=== PATIENT | female | born 1955 | race Caucasian/White ===

== ENCOUNTER 2017-01-25 14:13 | Emergency (ER) | payer OTHER ==
[2017-01-25 14:28] VITALS: TEMP 98.2; O2SAT 96
--- NOTE | 2017-01-25 14:46 | ED.PDOC ---
History of Present Illness - General Chief Complaint: Problem Stated Complaint: urinary urgency Time Seen by Provider: 01/25/17 14:34 Source: patient Exam Limitations: no limitations - History of Present Illness Initial Comments: Patient presents with three days of frequency, urgency, and incomplete voiding. No dysuria. Says she has had "kidney infections" before. Denies fever. Says she has right lower back pain that is of recent onset but also states that she has chronic back pain. Stopped smoking tobacco 9 years ago. Drinks 1-2 beers per day. Smokes marijuana recreationally. No other complaints. Timing/Duration: other - 3 days Severity: moderate Improving Factors: nothing Worsening Factors: nothing Associated Symptoms: denies symptoms Allergies/Adverse Reactions: Allergies NO KNOWN ALLERGY Allergy (Verified 09/27/16 15:31) Home Medications: Ambulatory Orders HYDROcodone 10MG/APAP 325MG [[place] 10/325] 1 tab PO QID 07/18/15 Atorvastatin Calcium [Lipitor] 40 mg PO BEDTIME 09/27/16 Lisinopril 20 mg PO DAILY 09/27/16 Review of Systems - Review of Systems Constitutional: States: no symptoms reported EENTM: States: no symptoms reported Respiratory: States: no symptoms reported Cardiology: States: no symptoms reported Gastrointestinal/Abdominal: States: no symptoms reported Genitourinary: States: no symptoms reported Musculoskeletal: States: no symptoms reported Skin: States: no symptoms reported Neurological: States: no symptoms reported Endocrine: States: no symptoms reported Hematologic/Lymphatic: States: no symptoms reported Past Medical History (General) - Patient Medical History Hx Seizures: No Hx Stroke: No Hx Dementia: No Hx Asthma: No Hx of COPD: No Hx Cardiac Disorders: No Hx Congestive Heart Failure: No Hx Pacemaker: No Hx Hypertension: Yes Hx Thyroid Disease: No Hx Diabetes: No Hx Gastroesophageal Reflux: No Hx Renal Disease: No Hx Cancer: No Hx of HIV: No Hx MRSA: No - Vaccination History Hx Tetanus, Diphtheria Vaccination: No Hx Influenza Vaccination: No Hx Pneumococcal Vaccination: No - Social History Hx Tobacco Use: No Hx Alcohol Use: No Hx Substance Use: No Hx Substance Use Treatment: No Hx Depression: No - Female History Patient is a Female of Child Bearing Age (10 -59 yrs old): No Family Medical History - Family History Mother Family History: No Known Living Status: Still Living Hx Family;Other: FAHTER OF [place]. BROTHER OF [place]. Physical Exam - Physical Exam General Appearance: Alert Ears, Nose, Throat: normal ENT inspection Neck: non-tender, full range of motion, supple Respiratory: lungs clear Cardiovascular/Chest: normal peripheral pulses, regular rate, rhythm, no edema Gastrointestinal/Abdominal: normal bowel sounds, non tender, soft Back Exam: normal inspection Extremity: normal inspection, no pedal edema Neurologic: no motor/sensory deficits Skin Exam: normal color Lymphatic: no adenopathy Progress - Progress Progress: 01/25/17 15:47 UA x two negative. 01/25/17 15:47 Laboratory Tests 01/25/17 14:27 Urine Color Yellow Urine Appearance Clear Urine pH 5.5 Ur Specific [place] 1.010 Urine Protein Negative Urine Glucose (UA) Negative Urine Ketones Negative Urine Blood Trace-intact H Urine Nitrite Negative Urine Bilirubin Negative Urine Urobilinogen 0.2 Ur Leukocyte Esterase Negative Urine RBC 0-1 Urine WBC 0 Ur Epithelial Cells 0-1 Urine Bacteria 0 Departure - Departure Clinical Impression: Dysuria Disposition: Discharge to Home or Self Care Condition: Good Departure Forms: ED Discharge - Pt. Copy, Patient Portal Self Enrollment Diet: resume usual diet Activity: increase activity as tolerated Home Medications: Ambulatory Orders HYDROcodone 10MG/APAP 325MG [[place] 10/325] 1 tab PO QID 07/18/15 Atorvastatin Calcium [Lipitor] 40 mg PO BEDTIME 09/27/16 Lisinopril 20 mg PO DAILY 09/27/16 Additional Instructions: Increase oral fluids. Follow up with your primary care doctor next week if pain does not resolve.
[2017-01-25 16:06] VITALS: BP 131/74
== END 2017-01-25 16:06 | disposition home or self-care (01) ==
LOC: ER 14:13
DX: R30.0 Dysuria (principal); I10 Essential (primary) hypertension; Z87.891 Personal history of nicotine dependence; Z79.899 Other long term (current) drug therapy; Z82.49 Family history of ischemic heart disease and other diseases of the circulatory system

== ENCOUNTER 2017-05-11 10:58 | Emergency (ER) | payer OTHER ==
--- NOTE | 2017-05-11 11:15 | ED.PDOC ---
History of Present Illness - General Chief Complaint: General Stated Complaint: blood in urine,back pain Time Seen by Provider: 05/11/17 11:09 Source: patient Exam Limitations: no limitations - History of Present Illness Initial Comments: Racheal Callahan 61 y/o female stated that she had hysterectomy last month and had also been treated fo acute cystitis with blood in urine but today with backache and stiil need to go to bathroom frequently.No hematuria,no constipation. Timing/Duration: intermittent, other - 5 days Improving Factors: nothing Worsening Factors: nothing Associated Symptoms: other - backache Allergies/Adverse Reactions: Allergies NO KNOWN ALLERGY Allergy (Verified 09/27/16 15:31) Home Medications: Ambulatory Orders HYDROcodone 10MG/APAP 325MG [[place] 10/325] 1 tab PO QID 07/18/15 Atorvastatin Calcium [Lipitor] 40 mg PO BEDTIME 09/27/16 Lisinopril 20 mg PO DAILY 09/27/16 Phenazopyridine HCl [Pyridium] 100 mg PO BID #7 tab 05/11/17 flavoxATE HYDROCHLORIDE [Urispas] 100 mg PO BID #7 tab 05/11/17 Review of Systems - Review of Systems Constitutional: States: no symptoms reported EENTM: States: no symptoms reported Respiratory: States: no symptoms reported Cardiology: States: no symptoms reported Gastrointestinal/Abdominal: States: no symptoms reported Genitourinary: States: see HPI Musculoskeletal: States: back pain - chronic goes to pain management Past Medical History (General) - Patient Medical History Hx Seizures: No Hx Stroke: No Hx Dementia: No Hx Asthma: No Hx of COPD: No Hx Cardiac Disorders: No Hx Congestive Heart Failure: No Hx Pacemaker: No Hx Hypertension: Yes Hx Thyroid Disease: No Hx Diabetes: No Hx Gastroesophageal Reflux: No Hx Renal Disease: No Hx Cancer: No Hx of HIV: No Hx MRSA: No Surgical History: other - hysterectomy - Vaccination History Hx Tetanus, Diphtheria Vaccination: No Hx Influenza Vaccination: No Hx Pneumococcal Vaccination: No - Social History Hx Tobacco Use: No Hx Alcohol Use: No Hx Substance Use: No Hx Substance Use Treatment: No Hx Depression: No - Activities of Daily Living Patient Lives Alone: No - family Grooming Ability: Independent Eating (Feeding) Ability: Independent Toileting Ability: Independent Family Medical History - Family History Mother Family History: No Known Living Status: Still Living Hx Cardiac Disease: Yes - cad/mi-dad Hx Family Cancer: Yes - uterus-mom Hx Family;Other: FAHTER OF [place]. BROTHER OF [place]. Physical Exam - Physical Exam General Appearance: Alert, Anxious, No apparent distress Eye Exam: bilateral normal Ears, Nose, Throat: hearing grossly normal, normal ENT inspection Neck: non-tender, full range of motion, supple, normal inspection Respiratory: chest non-tender, lungs clear, normal breath sounds Cardiovascular/Chest: normal peripheral pulses, regular rate, rhythm, no murmur Peripheral Pulses: radial,right: 1+, radial,left: 1+ Gastrointestinal/Abdominal: normal bowel sounds, non tender, soft, no organomegaly Back Exam: normal inspection, no CVA tenderness, no vertebral tenderness Extremity: normal range of motion, non-tender, normal inspection, no pedal edema , no calf tenderness Neurologic: no motor/sensory deficits, alert, normal mood/affect, oriented x 3 Skin Exam: normal color, warm/dry Lymphatic: no adenopathy Departure - Departure Clinical Impression: Pelvic relaxation disorder Time of Disposition: 12:56 Disposition: Discharge to Home or Self Care Condition: Good Referrals: Mary Narayanan [Primary Care Provider] - 1-2 Weeks Prescriptions: flavoxATE HYDROCHLORIDE [Urispas] 100 mg PO BID #7 tab Phenazopyridine HCl [Pyridium] 100 mg PO BID #7 tab Home Medications: Ambulatory Orders HYDROcodone 10MG/APAP 325MG [[place] 10/325] 1 tab PO QID 07/18/15 Atorvastatin Calcium [Lipitor] 40 mg PO BEDTIME 09/27/16 Lisinopril 20 mg PO DAILY 09/27/16 Phenazopyridine HCl [Pyridium] 100 mg PO BID #7 tab 05/11/17 flavoxATE HYDROCHLORIDE [Urispas] 100 mg PO BID #7 tab 05/11/17 Additional Instructions: FOLLOW UP WITH CAREER REPRESENTATIVE 05/12/2017 call for APPOINTMENT
[2017-05-11 12:07] VITALS: TEMP 98.5
[2017-05-11 13:30] VITALS: BP 125/82; O2SAT 97
== END 2017-05-11 13:10 | disposition home or self-care (01) ==
LOC: ER 10:58
DX: N81.89 Other female genital prolapse (principal); Z79.899 Other long term (current) drug therapy; I10 Essential (primary) hypertension; Z82.49 Family history of ischemic heart disease and other diseases of the circulatory system

== ENCOUNTER 2019-01-15 18:30 | Emergency (ER) | payer OTHER ==
[2019-01-15 18:53] VITALS: TEMP 97.6
--- NOTE | 2019-01-15 19:31 | ED.PDOC ---
History of Present Illness - General Chief Complaint: Abdominal Pain Stated Complaint: Bilat flank discomfort Time Seen by Provider: 01/15/19 18:35 Source: patient Exam Limitations: no limitations - History of Present Illness Initial Comments: the patient is a 63-year-old female presenting to the emergency room secondary to symptoms of a urinary tract infection and been progressive over the last week. She is having frequency along with dysuria as well as bilateral flank pain. No fever at this point. No nausea or vomiting. She has had several urinary tract infections in the past. No significant vaginal discharge. Timing/Duration: 1 week Severity: moderate Improving Factors: nothing Worsening Factors: nothing Associated Symptoms: malaise Allergies/Adverse Reactions: Allergies NO KNOWN ALLERGY Allergy (Verified 01/15/19 18:53) Home Medications: Ambulatory Orders HYDROcodone 10MG/APAP 325MG [[place] 10/325] 1 tab PO QID 07/18/15 Atorvastatin Calcium [Lipitor] 40 mg PO BEDTIME 09/27/16 Lisinopril 20 mg PO DAILY 09/27/16 Ciprofloxacin [Cipro] 500 mg PO BID #20 tab 01/15/19 Nitrofurantoin Monohydrate Mac [Macrobid] 100 mg PO DAILY #7 capsule 01/15/19 tiZANidine [Zanaflex] 4 mg PO TID PRN 01/15/19 Review of Systems - Review of Systems Constitutional: States: malaise EENTM: States: no symptoms reported Respiratory: States: no symptoms reported Cardiology: States: no symptoms reported Gastrointestinal/Abdominal: States: abdominal pain - suprapubic Genitourinary: States: see HPI Musculoskeletal: States: back pain Skin: States: no symptoms reported Neurological: States: no symptoms reported Endocrine: States: no symptoms reported All other Systems: No Change from Baseline Past Medical History (General) - Patient Medical History Hx Seizures: No Hx Stroke: No Hx Dementia: No Hx Asthma: No Hx of COPD: Yes Hx Cardiac Disorders: No Hx Congestive Heart Failure: No Hx Pacemaker: No Hx Hypertension: Yes Hx Thyroid Disease: No Hx Diabetes: No Hx Gastroesophageal Reflux: No Hx Renal Disease: No Hx Cancer: No Hx of HIV: No Hx MRSA: No Surgical History: Hysterectomy - Vaccination History Hx Tetanus, Diphtheria Vaccination: Yes Hx Influenza Vaccination: Yes - 2018 Hx Pneumococcal Vaccination: No - Social History Hx Tobacco Use: Yes - Quit 2008 Hx Alcohol Use: No Hx Substance Use: No Hx Substance Use Treatment: No Hx Depression: No Family Medical History - Family History Mother Family History: No Known Living Status: Still Living Hx Cardiac Disease: Yes - cad/mi-dad Hx Family Cancer: Yes - uterus-mom Hx Family;Other: FATHER OF [place]. BROTHER OF [place]. Physical Exam - Physical Exam General Appearance: Alert, No apparent distress Eye Exam: bilateral normal Ears, Nose, Throat: hearing grossly normal Neck: full range of motion Respiratory: no respiratory distress, no accessory muscle use Cardiovascular/Chest: no edema Gastrointestinal/Abdominal: soft, other - mild suprapubic discomfort. Obesity. Rectal Exam: deferred Back Exam: CVA tenderness (R), CVA tenderness (L) - mild Extremity: non-tender, normal inspection, no pedal edema, normal capillary refill Neurologic: veterinary technologist II-XII nml as tested, alert, normal mood/affect, oriented x 3 Skin Exam: normal color Comments: Vital Signs - 24 hr 01/15/19 01/15/19 18:33 19:00 Temperature 97.6 F Pulse Rate [ 96 H 84 Left Radial] Respiratory 20 20 Rate Blood Pressure 161/108 160/76 [Left Arm] O2 Sat by Pulse 94 L 94 L Oximetry Progress - Progress Progress: 01/15/19 19:31 the patient is a 63-year-old female presenting to the emergency room secondary to symptoms of cystitis and pyelonephritis. The patient is being given a dose of Rocephin and ciprofloxacin here tonight. She is going to be placed on ciprofloxacin for the next 10 days and Macrobid for the next 7 days. Culture will be done. She needs to keep herself well hydrated. [id number] anti-inflammatory such as Motrin or Aleve may also help with discomfort. She needs to follow up with her primary care doctor next week for a repeat urinalysis. ER warnings were given for any significant worsening. - Results/Orders Results/Orders: Laboratory Tests 01/15/19 19:01 Urine Color [place] H Urine Appearance Clear Urine pH 6.0 Ur Specific [place] 1.010 Urine Protein 30 Urine Glucose (UA) 100 H Urine Ketones Trace Urine Blood Trace-lysed H Urine Nitrite Positive H Urine Bilirubin Negative Urine Urobilinogen 2.0 H Ur Leukocyte Esterase Large H Urine RBC 1-3 Urine WBC 5-10 H Ur Epithelial Cells 5-10 Urine Bacteria 3+ H Departure - Departure Clinical Impression: Pyelonephritis, Cystitis Disposition: Discharge to Home or Self Care Condition: Fair Departure Forms: ED Discharge - Pt. Copy, Patient Portal Self Enrollment Instructions: Urinary Tract Infection, Adult (DC) Diet: regular diet Activity: increase activity as tolerated Referrals: Mary Narayanan [Primary Care Provider] - 1-2 Weeks Prescriptions: Ciprofloxacin [Cipro] 500 mg PO BID #20 tab Nitrofurantoin Monohydrate Mac [Macrobid] 100 mg PO DAILY #7 capsule Home Medications: Ambulatory Orders HYDROcodone 10MG/APAP 325MG [[place] 10/325] 1 tab PO QID 07/18/15 Atorvastatin Calcium [Lipitor] 40 mg PO BEDTIME 09/27/16 Lisinopril 20 mg PO DAILY 09/27/16 Ciprofloxacin [Cipro] 500 mg PO BID #20 tab 01/15/19 Nitrofurantoin Monohydrate Mac [Macrobid] 100 mg PO DAILY #7 capsule 01/15/19 tiZANidine [Zanaflex] 4 mg PO TID PRN 01/15/19 Additional Instructions: the patient is a 63-year-old female presenting to the emergency room secondary to symptoms of cystitis and pyelonephritis. The patient is being given a dose of Rocephin and ciprofloxacin here tonight. She is going to be placed on ciprofloxacin for the next 10 days and Macrobid for the next 7 days. Culture will be done. She needs to keep herself well hydrated. [id number] anti-inflammatory such as Motrin or Aleve may also help with discomfort. She needs to follow up with her primary care doctor next week for a repeat urinalysis. ER warnings were given for any significant worsening. hold your cholesterol medication while taking your antibiotics. attempt to minimize muscle relaxer use while taking antibiotics as well, as the antibiotics may increase the potency of these medications.
[2019-01-15] MEDS ORDERED: LIDOCAINE 1% 10 ML VIAL INJ ONE (19:46)
[2019-01-15] MEDS: cefTRIAXone SODIUM 1 GM VIAL IM ONE (19:55)
[2019-01-15] MEDS: CIPROFLOXACIN 500 MG TAB PO ONE (19:55)
[2019-01-15] MEDS: FLUCONAZOLE 100 MG TAB PO ONE (19:57)
[2019-01-15 20:17] VITALS: BP 159/87; O2SAT 96
== END 2019-01-15 20:16 | disposition home or self-care (01) ==
LOC: ER 18:30
DX: N12 Tubulo-interstitial nephritis, not specified as acute or chronic (principal); N30.90 Cystitis, unspecified without hematuria; J44.9 Chronic obstructive pulmonary disease, unspecified; I10 Essential (primary) hypertension; Z87.891 Personal history of nicotine dependence; Z87.440 Personal history of urinary (tract) infections; Z79.899 Other long term (current) drug therapy
CPT/HCPCS: 81001; 87086; J0696